=== PATIENT | male | born 1965 | race Caucasian/White ===

== ENCOUNTER 2018-09-19 09:58 | Outpatient (REF) | payer MEDICAID, SELFPAY ==
[2018-09-19 19:04] LABS: HCT 42.1 % (40.0-50.0); HGB 13.8 g/dL (13.5-17.5); Mean Corp. HGB Concentration 32.8 g/dL (32.0-36.0); Mean Corpuscular Hemoglobin 20.8 pg (27.0-33.0); Mean Corpuscular Volume 63.4 fL (80-95); Mean Platelet Volume 11.4 fL (8.0-11.0); Platelet Count 239 x1000/uL (130-400); RBC 6.64 m/cumm (4.50-6.00); RBC Distribution Width 18.4 % (11.8-14.1); White Blood Cell Count 5.45 k/cumm (4.4-10.8)
[2018-09-19 19:11] LABS: Anion Gap 12.3 mmol/L (3-11); BUN 15 mg/dL (7-18); CO2 24.7 mmol/L (21.0-32.0); CREATININE 0.83 mg/dL (0.70-1.30); Calcium 9.2 mg/dL (8.5-10.1); Chloride 106 mmol/L (98-107); Glucose 92 mg/dL (70-100); Potassium 4.1 mmol/L (3.5-5.1); Sodium 143 mmol/L (136-145)
[2018-09-19 19:39] LABS: Hemoglobin A1C 5.6 % (4.5-6.2)
== END 2018-09-19 10:18 ==
LOC: NCHCN 09:58
PROVIDERS: PCP Physician Assistant Medical; Visit Provider Physician Assistant Medical
DX: D50.9 Iron deficiency anemia, unspecified (principal); Z00.00 Encounter for general adult medical examination without abnormal findings; Z13.1 Encounter for screening for diabetes mellitus
CPT/HCPCS: 80048; 85027; 83036

== ENCOUNTER 2018-12-26 09:54 | Outpatient (REF) | payer MEDICAID, SELFPAY ==
[2018-12-28 10:52] LABS: Varicella IgG Antibody Positive
== END 2018-12-26 10:14 ==
LOC: NCHCN 09:54
PROVIDERS: PCP Nurse Practitioner Family; Visit Provider Nurse Practitioner Family
DX: Z11.59 Encounter for screening for other viral diseases (principal)
CPT/HCPCS: 86787

== ENCOUNTER 2019-04-28 00:36 | Outpatient (CLI) | payer MEDICAID, SELFPAY ==
--- NOTE | 2019-04-28 08:58 | DI.US_ITS ---
EXAM: US RENAL CLINICAL HISTORY: r/o hydronephrosis N40.1 BENIGN PROSTATIC HYPERPLASIA TECHNIQUE: Ultrasound performed using standard protocol. COMPARISON: No exams were available for comparison FINDINGS: Kidneys are normal in size and shape. There is no evidence of hydronephrosis or nephrolithiasis. Ur inary bladder is distended and pre and postvoid urinary bladder volume measurements are 1048 cc and 6 34 cc respectively. Prostatic volume is 100 cc. Ureteral jets were nonvisualized. Bladder wall thickness within normal limits. IMPRESSION: Findings consistent with bladder outlet obstruction as described above. No evidence of hydronephrosi s or nephrolithiasis. Marked prostatic hypertrophy.
== END 2019-04-28 00:56 ==
PROVIDERS: PCP Nurse Practitioner Family; Visit Provider Urology
DX: N40.1 Benign prostatic hyperplasia with lower urinary tract symptoms (principal); N13.8 Other obstructive and reflux uropathy
CPT/HCPCS: 76770

== ENCOUNTER 2020-01-01 20:01 | Outpatient (REF) | payer MEDICAID, SELFPAY ==
[2020-01-01 20:03] LABS: Abs Immature Grans 0.02 10^3/uL (0.0-0.06); Absolute Basophil Count 0.03 10^3/uL (0.0-0.2); Absolute Eosinophil Count 0.14 10^3/uL (0.0-0.7); Absolute Lymphocyte Count 1.73 10^3/uL (1.2-3.4); Absolute Neutrophil Count 3.07 10^3/uL (1.2-6.7); Basophils % 0.6; Eosinophils % 2.6; HCT 41.7 % (40.0-50.0); HGB 12.8 g/dL (13.5-17.5); Immature Grans % 0.4; Lymphocytes % 32.1; MCH 20.6 pg (27.0-33.0); MCHC 30.7 % (32.0-36.0); MCV 67.1 fL (80-95); MPV 11.4 fL (8.0-11.0); Monocytes % 7.4; Neutrophils % 56.9; Nucleated RBC 0 %; Platelet Count 217 10^3/uL (130-400); RBC 6.21 10^6/uL (4.36-5.78); RDW 16.3 % (11.8-14.1); RDW-SD 36.6 fL; WBC 5.39 10^3/uL (4.4-10.8)
[2020-01-01 20:14] LABS: Diff Comment RBC Morph Reviewed
[2020-01-01 20:15] LABS: Microcytosis 2+
[2020-01-01 20:23] LABS: Hemoglobin A1C 5.3 % (<5.7)
[2020-01-01 20:26] LABS: ALT 31 U/L (16-63); AST 19 U/L (15-37); Albumin 3.8 g/dL (3.4-5.0); Alkaline Phosphatase 42 U/L (46-116); Anion Gap 5.9 mmol/L (3-11); BUN 14 mg/dL (7-18); Bilirubin, Total 0.7 mg/dL (0.2-1.0); CO2 30.1 mmol/L (21.0-32.0); Calcium 8.4 mg/dL (8.5-10.1); Calculated LDL 192 mg/dL (<100); Chloride 105 mmol/L (98-107); Cholesterol 261 mg/dL (<200); Glucose 86 mg/dL (74-106); HDL Cholesterol 61 mg/dL (40-60); Sodium 141 mmol/L (136-145); TSH (W/Ref FT4) 2.16 uIU/mL (0.36-3.74); Total Protein 6.9 g/dL (6.4-8.2); Triglyceride 42 mg/dL (<150)
== END 2020-01-01 20:21 ==
LOC: NCHCN 20:01
PROVIDERS: PCP Nurse Practitioner Family; Visit Provider Physician Assistant
DX: I10 Essential (primary) hypertension (principal); E78.2 Mixed hyperlipidemia; R63.4 Abnormal weight loss; D56.3 Thalassemia minor; N40.0 Benign prostatic hyperplasia without lower urinary tract symptoms
CPT/HCPCS: 80053; 80061; 83036; 84443; 85025

== ENCOUNTER 2020-07-23 19:27 | Outpatient (REF) | payer MEDICAID, SELFPAY ==
[2020-07-24 17:22] LABS: PSA, Diagnostic 1.7 ng/mL (0.0-3.5)
== END 2020-07-23 19:28 | disposition home or self-care (01) ==
LOC: LBN 19:27
PROVIDERS: PCP Nurse Practitioner Family; Visit Provider Urology
DX: N40.1 Benign prostatic hyperplasia with lower urinary tract symptoms (principal); N13.8 Other obstructive and reflux uropathy
CPT/HCPCS: 84153

== ENCOUNTER 2021-01-01 11:58 | Outpatient (REF) | payer MEDICAID, SELFPAY ==
[2021-01-01 21:49] LABS: BUN 17 mg/dL (7-18); Calcium 9.3 mg/dL (8.5-10.1); Chloride 105 mmol/L (98-107); Glucose 82 mg/dL (74-106); Potassium 4.7 mmol/L (3.5-5.1); Sodium 140 mmol/L (136-145)
== END 2021-01-01 11:59 | disposition home or self-care (01) ==
LOC: NCHCN 11:58
PROVIDERS: PCP Nurse Practitioner Family; Visit Provider Physician Assistant
DX: I10 Essential (primary) hypertension (principal)
CPT/HCPCS: 80048

== ENCOUNTER 2021-04-29 17:59 | Outpatient (REF) | payer MEDICAID, SELFPAY ==
[2021-04-29 20:29] LABS: BUN 14 mg/dL (7-18); CREATININE 0.8 mg/dL (0.70-1.30); Chloride 103 mmol/L (98-107); Glucose 83 mg/dL (74-106); Potassium 4.3 mmol/L (3.5-5.1); Sodium 138 mmol/L (136-145)
== END 2021-04-29 18:00 | disposition home or self-care (01) ==
LOC: NCHCN 17:59
PROVIDERS: PCP Nurse Practitioner Family; Visit Provider Physician Assistant
DX: I10 Essential (primary) hypertension (principal)
CPT/HCPCS: 80048

== ENCOUNTER 2022-08-28 14:51 | Outpatient (REF) | payer MEDICAID, SELFPAY ==
[2022-08-31 08:55] LABS: PSA, Diagnostic 2.8 ng/mL (<=3.5)
== END 2022-08-28 14:52 | disposition home or self-care (01) ==
LOC: LBN 14:51
PROVIDERS: PCP Internal Medicine; Visit Provider Urology
DX: N40.1 Benign prostatic hyperplasia with lower urinary tract symptoms (principal); N13.8 Other obstructive and reflux uropathy
CPT/HCPCS: 84153

== ENCOUNTER 2023-09-03 15:07 | Outpatient (CLI) | payer MEDICAID, SELFPAY ==
[2023-09-06 09:50] LABS: PSA, Diagnostic 4.5 ng/mL (<=3.5)
== END 2023-09-03 15:08 | disposition home or self-care (01) ==
LOC: LBO 15:08
PROVIDERS: PCP Internal Medicine; Visit Provider Urology
DX: N40.1 Benign prostatic hyperplasia with lower urinary tract symptoms (principal); N13.8 Other obstructive and reflux uropathy
CPT/HCPCS: 36415; 84153